=== PATIENT | female | born 1965 | race Caucasian/White ===

== ENCOUNTER 2018-09-10 23:28 | Inpatient (IN) | payer MEDICAID ==
[~2018-09-10] VITALS: Ht 152.4 cm; Wt 63.1 kg
[2018-09-11] MEDS ORDERED: ONDANSETRON 4 MG INJ IV STA (02:41)
[2018-09-11] MEDS ORDERED: morphine 4 MG/ML VIAL IV STA (02:41)
--- NOTE | 2018-09-11 05:29 | ERD ---
ER Documentation Chief Complaint Chief Complaint RUQ ab pain radiating to her flanks today HPI Patient is a 52-year-old female with no medical problems who presents with abdominal pain. The patient has epigastric abdominal pain which radiates to her back. It is constant and sharp in nature. She has had no treatment as of yet. She has no fevers. She has vomiting but no diarrhea. Upon review of old medical records this is the patient's first visit to the emergency department. Her primary doctor is Dr. Warner. ROS All systems reviewed and are negative except as per history of present illness. Allergies Allergies: Coded Allergies: No Known Allergy (Unverified , 09/10/18) PMhx/Soc Medical and Surgical Hx: pt denies Medical Hx History of Surgery: Yes (C-sectionX2) Anesthesia Reaction: No Hx Neurological Disorder: No Hx Respiratory Disorders: No Hx Cardiac Disorders: No Hx Miscellaneous Medical Probl: No Hx Alcohol Use: No Hx Substance Use: No Hx Tobacco Use: No Smoking Status: Never smoker FmHx Family History: diabetes Physical Exam Vitals Vital Signs Date Temp Pulse Resp B/P (MAP) Pulse Ox O2 O2 Flow FiO2 Time Delivery Rate 09/11/18 72 20 110/85 96 Room Air 05:00 (93) 09/11/18 74 22 129/76 99 Room Air 02:35 (93) 09/10/18 97.2 89 18 150/75 100 23:32 (100) Physical Exam Const: Distress secondary to pain Head: Atraumatic Eyes: Normal Conjunctiva ENT: Normal External Ears, Nose and Mouth. Neck: Full range of motion. No meningismus. Resp: Clear to auscultation bilaterally Cardio: Regular rate and rhythm, no murmurs Abd: Soft, right upper quadrant and epigastric tenderness to palpation Skin: No petechiae or rashes Back: No midline or flank tenderness Ext: No cyanosis, or edema Neur: Awake and alert Psych: Normal Mood and Affect Result Diagram: 09/11/18 0250 09/11/18 0250 Results 24 hrs Laboratory Tests Test 09/11/18 02:45 09/11/18 02:50 Urine Color YELLOW Urine Clarity CLEAR Urine pH 6.0 Urine Specific [place] 1.018 Urine Ketones NEGATIVE mg/dL Urine Nitrite NEGATIVE mg/dL Urine Bilirubin NEGATIVE mg/dL Urine Urobilinogen 1+ mg/dL Urine Leukocyte Esterase NEGATIVE Hilda/ul Urine Microscopic RBC 7 /HPF Urine Microscopic WBC 0 /HPF Urine Hemoglobin 1+ mg/dL Urine Glucose NEGATIVE mg/dL Urine Total Protein NEGATIVE mg/dl White Blood Count 6.3 10^3/ul Red Blood Count 4.14 10^6/ul Hemoglobin 13.0 g/dl Hematocrit 40.2 % Mean Corpuscular Volume 97.1 fl Mean Corpuscular Hemoglobin 31.4 pg Mean Corpuscular Hemoglobin Concent 32.3 g/dl Red Cell Distribution Width 13.2 % Platelet Count 380 10^3/UL Mean Platelet Volume 8.9 fl Immature Granulocytes % 0.200 % Neutrophils % 65.2 % Lymphocytes % 26.9 % Monocytes % 6.5 % Eosinophils % 0.9 % Basophils % 0.3 % Nucleated Red Blood Cells % 0.0 /100WBC Immature Granulocytes # 0.010 10^3/ul Neutrophils # 4.1 10^3/ul Lymphocytes # 1.7 10^3/ul Monocytes # 0.4 10^3/ul Eosinophils # 0.1 10^3/ul Basophils # 0.0 10^3/ul Nucleated Red Blood Cells # 0.0 10^3/ul Sodium Level 144 mmol/L Potassium Level 3.7 mmol/L Chloride Level 104 mmol/L Carbon Dioxide Level 29 mmol/L Anion Gap 11 Blood Urea Nitrogen 16 mg/dl Creatinine 0.50 mg/dl Est Glomerular Filtrat Rate mL/min > 60 mL/min Glucose Level 112 mg/dl Calcium Level 9.8 mg/dl Total Bilirubin 1.5 mg/dl Direct Bilirubin 0.20 mg/dl Indirect Bilirubin 1.3 mg/dl Aspartate Amino Transf (AST/SGOT) 858 IU/L Alanine Aminotransferase (ALT/SGPT) 865 IU/L Alkaline Phosphatase 228 IU/L Total Protein 9.0 g/dl Albumin 4.7 g/dl Globulin 4.30 g/dl Albumin/Globulin Ratio 1.09 Lipase 181 U/L Current Medications Medications Dose Sig/Hiral Start Time Status Last (Trade) Ordered Route PRN Stop Time Admin Dose Reason Admin Morphine 4 mg ONCE STAT 09/11/18 DC 09/11/18 Sulfate IV 02:41 09/11/18 03:17 (morphine) 02:42 Ondansetron 4 mg ONCE STAT 09/11/18 DC 09/11/18 HCl (Zofran IV 02:41 09/11/18 03:17 Inj) 02:42 Piperacillin 100 ml @ ONCE ONCE 09/11/18 UNV Sod/ 200 mls/hr IVPB 05:30 09/11/18 Tazobactam 05:59 Sod Ondansetron 4 mg BRIDGE ORDER 09/11/18 HCl (Zofran PRN IV 05:30 09/12/18 Inj) NAUSEA AND/OR 05:29 VOMITING 650 mg ER BRIDGE 09/11/18 Acetaminophen PRN PO MILD 05:30 09/12/18 (Tylenol PAIN(1-3)OR 05:29 Tab) ELEVATED TEMP Procedures/MDM Ultrasound of the gallbladder read by radiology. Patient is a 52-year-old female who presents with abdominal pain. She was found to have elevated AST and ALT and I am concerned about choledocholithiasis given her ultrasound findings as well. She was given Zosyn. I doubt sepsis at this time. The patient will be admitted to the care of Dr. Vidal from the panel team to a medical surgical bed. She will likely need GI consultation for possible ERCP. Departure Diagnosis: Primary Impression: Abdominal pain Abdominal location: epigastric Qualified Codes: R10.13 - Epigastric pain Additional Impression: Choledocholithiasis Condition: ANDREW Carey MD Sep 11, 2018 05:29
[2018-09-11] MEDS ORDERED: ONDANSETRON 4 MG INJ IV PRN ×2 (05:30→07:30)
[2018-09-11] MEDS ORDERED: ACETAMINOPHEN 325 MG TAB PO PRN (05:30)
[2018-09-11] MEDS ORDERED: PIPER-TAZO 3.375 GM IV (PMX) 100 ML IVPB ONE (05:30)
[2018-09-11] MEDS ORDERED: NACL 0.9% 3 ML SYG IV SCH (07:30)
[2018-09-11] MEDS ORDERED: morphine 2 MG INJ IV PRN (07:30)
[2018-09-11] MEDS: DEXTROSE 5%-0.45% NACL 1,000 ML IV SCH ×2 (07:37→23:18)
--- NOTE | 2018-09-11 08:41 | HP ---
Date/Time of Note Date/Time of Note DATE: 09/11/18 TIME: 08:39 Assessment/Plan VTE Prophylaxis Pharmacological prophylaxis: heparin Lines/Catheters IV Catheter Type (from Nrs): Saline Lock Assessment/Plan Assessment/Plan 52-year-old female with abdominal pain, likely secondary to choledocholithiasis PLAN Keep n.p.o. with IV fluid MRCP HIDA scan GI and surgical consult Hep panel Result Diagram: 09/11/18 0250 09/11/18 0250 Results 24hrs Laboratory Tests Test 09/11/18 02:45 09/11/18 02:50 Urine Color YELLOW Urine Clarity CLEAR Urine pH 6.0 Urine Specific [place] 1.018 Urine Ketones NEGATIVE Urine Nitrite NEGATIVE Urine Bilirubin NEGATIVE Urine Urobilinogen 1+ H Urine Leukocyte Esterase NEGATIVE Urine Microscopic RBC 7 H Urine Microscopic WBC 0 Urine Hemoglobin 1+ H Urine Glucose NEGATIVE Urine Total Protein NEGATIVE White Blood Count 6.3 Red Blood Count 4.14 L Hemoglobin 13.0 Hematocrit 40.2 Mean Corpuscular Volume 97.1 Mean Corpuscular Hemoglobin 31.4 Mean Corpuscular Hemoglobin Concent 32.3 Red Cell Distribution Width 13.2 Platelet Count 380 Mean Platelet Volume 8.9 Immature Granulocytes % 0.200 Neutrophils % 65.2 Lymphocytes % 26.9 Monocytes % 6.5 Eosinophils % 0.9 Basophils % 0.3 Nucleated Red Blood Cells % 0.0 Immature Granulocytes # 0.010 Neutrophils # 4.1 Lymphocytes # 1.7 Monocytes # 0.4 Eosinophils # 0.1 Basophils # 0.0 Nucleated Red Blood Cells # 0.0 Sodium Level 144 Potassium Level 3.7 Chloride Level 104 Carbon Dioxide Level 29 Anion Gap 11 Blood Urea Nitrogen 16 Creatinine 0.50 Est Glomerular Filtrat Rate mL/min > 60 Glucose Level 112 Calcium Level 9.8 Total Bilirubin 1.5 H Direct Bilirubin 0.20 Indirect Bilirubin 1.3 H Aspartate Amino Transf (AST/SGOT) 858 H Alanine Aminotransferase (ALT/SGPT) 865 H Alkaline Phosphatase 228 H Total Protein 9.0 H Albumin 4.7 Globulin 4.30 H Albumin/Globulin Ratio 1.09 Lipase 181 HPI/ROS Admit Date/Time Admit Date/Time Hx of Present Illness This is a 52-year-old female with no significant past medical history presented to ER complaining of abdominal pain and vomiting X 1 day. Pain is mainly localized in the right upper quadrant area. Emesis described as nonbloody nonbilious. No chest pain, shortness of breath, fever/chills. When presented to ER, she is found to have severely elevated transaminases in the 800s range. CT abdomen pelvis shows the followin. Gallstones are present with presumed tumefactive sludge although Doppler imaging was not utilized on this material. Correlation with prior imaging is suggested if available. Follow-up gallbladder ultrasound with Doppler imaging may be helpful for confirmation to exclude solid tissue/mass. 2. Positive sonographic Dillon's sign but no wall thickening or pericholecystic fluid. Acute cholecystitis may be considered. 3. Nuclear medicine HIDA scan may be helpful for further evaluation if warranted. PMH/Family/Social Past Medical History PMH/Family/Social Past Medical History Medical History: other (see hpi) Coded Allergies: No Known Drug Allergy (Verified Allergy, Unknown, 04/23/16) Past Surgical History Past Surgical Hx: other (see hpi) Family History Significant Family History: no pertinent family hx Social History Alcohol Use: other Smoking Status: Unknown if ever smoked Drug Use: other Medications Current Medications Ondansetron HCl (Zofran Inj) 4 mg BRIDGE ORDER PRN IV NAUSEA AND/OR VOMITING; Start 09/11/18 at 05:30; Stop 09/12/18 at 05:29 Acetaminophen (Tylenol Tab) 650 mg ER BRIDGE PRN PO MILD PAIN(1-3)OR ELEVATED TEMP; Start 09/11/18 at 05:30; Stop 09/12/18 at 05:29 Dextrose/Sodium Chloride 1,000 ml @ 100 mls/hr Q10H IV Last administered on 09/11/18at 07:37; Admin Dose 100 MLS/HR; Start 09/11/18 at 07:12 IV Flush (NS 3 ml) 3 ml PER PROTOCOL IV ; Start 09/11/18 at 07:30 Ondansetron HCl (Zofran Inj) 4 mg Q6H PRN IV NAUSEA AND/OR VOMITING; Start 09/11/18 at 07:30 Morphine Sulfate (morphine) 2 mg Q4H PRN IV SEVERE PAIN LEVEL 7-10; Start 09/11/18 at 07:30 Famotidine (Pepcid Iv) 20 mg Q12 IV ; Start 09/11/18 at 09:00 Coded Allergies: No Known Allergy (Unverified , 09/10/18) Social History Smoking Status: Never smoker Exam/Review of Systems Vital Signs Vitals Vital Signs Date Temp Pulse Resp B/P (MAP) Pulse Ox O2 O2 Flow FiO2 Time Delivery Rate 09/11/18 98.4 77 16 104/69 98 Room Air 06:35 (81) Exam Constitutional: other (No acute distress) Head: normocephalic, atraumatic Eyes: EOMI, PERRL Respiratory: clear to auscultation, normal air movement Cardiovascular: regular rate and rhythm, nl pulses Gastrointestinal: soft, tender Extremities: normal pulses JOHNY BARTH MD Sep 11, 2018 08:41
[2018-09-11] MEDS: FAMOTIDINE 20 MG INJ IV SCH ×2 (09:26→23:16)
[2018-09-11 10:18] VITALS: BP 112/63; PULSE 86; RESP 18
[2018-09-11 10:43] VITALS: Ht 152.4 cm; Wt 63.1 kg
--- NOTE | 2018-09-11 13:00 | CONS ---
Date/Time of Note Date/Time of Note DATE: 09/11/18 TIME: 12:48 Assessment/Plan Assessment/Plan Assessment/Plan 1. Cholelithiasis with concern for choledocholithiasis: -MRCP pending -GI consult 2. Abdominal pain: ? 2/2 symptomatic cholelithiasis versus cholelithiasis versus other -As above -Pain management 3. Hyperbilirubinemia: Concern for choledocholithiasis -As above 4. Transaminitis: Likely 2/2 #1; hep panel negative -As above 5. Overweight BMI: 27 -diet and exercise optimization -encourage weight loss Thank you. Patient seen and examined in collaboration with Dr. Fernando Bustamante. Result Diagram: 09/11/18 0250 09/11/18 0250 Results 24hrs Laboratory Tests Test 09/11/18 02:45 09/11/18 02:50 09/11/18 07:29 Urine Color YELLOW Urine Clarity CLEAR Urine pH 6.0 Urine Specific [place] 1.018 Urine Ketones NEGATIVE Urine Nitrite NEGATIVE Urine Bilirubin NEGATIVE Urine Urobilinogen 1+ H Urine Leukocyte Esterase NEGATIVE Urine Microscopic RBC 7 H Urine Microscopic WBC 0 Urine Hemoglobin 1+ H Urine Glucose NEGATIVE Urine Total Protein NEGATIVE White Blood Count 6.3 Red Blood Count 4.14 L Hemoglobin 13.0 Hematocrit 40.2 Mean Corpuscular Volume 97.1 Mean Corpuscular Hemoglobin 31.4 Mean Corpuscular Hemoglobin Concent 32.3 Red Cell Distribution Width 13.2 Platelet Count 380 Mean Platelet Volume 8.9 Immature Granulocytes % 0.200 Neutrophils % 65.2 Lymphocytes % 26.9 Monocytes % 6.5 Eosinophils % 0.9 Basophils % 0.3 Nucleated Red Blood Cells % 0.0 Immature Granulocytes # 0.010 Neutrophils # 4.1 Lymphocytes # 1.7 Monocytes # 0.4 Eosinophils # 0.1 Basophils # 0.0 Nucleated Red Blood Cells # 0.0 Sodium Level 144 Potassium Level 3.7 Chloride Level 104 Carbon Dioxide Level 29 Anion Gap 11 Blood Urea Nitrogen 16 Creatinine 0.50 Est Glomerular Filtrat Rate mL/min > 60 Glucose Level 112 Calcium Level 9.8 Total Bilirubin 1.5 H Direct Bilirubin 0.20 Indirect Bilirubin 1.3 H Aspartate Amino Transf (AST/SGOT) 858 H Alanine Aminotransferase (ALT/SGPT) 865 H Alkaline Phosphatase 228 H Total Protein 9.0 H Albumin 4.7 Globulin 4.30 H Albumin/Globulin Ratio 1.09 Lipase 181 Hepatitis B Surface Antigen NEGATIVE Hepatitis B Surface Antibody NEGATIVE Hepatitis C Antibody NEGATIVE Consultation Date/Type/Reason Admit Date/Time Date of Consultation: Sep 11, 2018 Type of Consult surgical Reason for Consultation Abdominal pain, cholelithiasis, concern for choledocholithiasis Requesting Provider: JOHNY BARTH MD Hx of Present Illness Yarely Sandoval is a 52-year-old woman without significant past medical history, who presents to the ER with complaints of abdominal pain times 3 days. Abdominal pain is mid epigastric and in the right upper quadrant area with radiation to the back. Pain is described as strong and stabbing. Associated symptoms include one-time vomiting, nonbloody emesis. She denies changes in pain characteristic with food, fevers, chills, congested cough, chest pain, palpitations, dysuria, diarrhea, change in bowel or bladder habits, seizures, rash, skin or scleral changes.Ultrasound of the gallbladder shows gallstones with presumed tumefactive sludge and a positive sonographic Dillon's sign without wall thickening or pericholecystic fluid. Laboratory findings significant for elevated bilirubin and transaminitis. General surgery was asked to evaluate. 12 point review of systems was performed and is negative except for as stated in HPI Past Medical History Overweight: BMI 27 Medications Current Medications Ondansetron HCl (Zofran Inj) 4 mg BRIDGE ORDER PRN IV NAUSEA AND/OR VOMITING; Start 09/11/18 at 05:30; Stop 09/12/18 at 05:29 Acetaminophen (Tylenol Tab) 650 mg ER BRIDGE PRN PO MILD PAIN(1-3)OR ELEVATED TEMP; Start 09/11/18 at 05:30; Stop 09/12/18 at 05:29 Dextrose/Sodium Chloride 1,000 ml @ 100 mls/hr Q10H IV Last administered on 09/11/18at 07:37; Admin Dose 100 MLS/HR; Start 09/11/18 at 07:12 IV Flush (NS 3 ml) 3 ml PER PROTOCOL IV ; Start 09/11/18 at 07:30 Ondansetron HCl (Zofran Inj) 4 mg Q6H PRN IV NAUSEA AND/OR VOMITING; Start 09/11/18 at 07:30 Morphine Sulfate (morphine) 2 mg Q4H PRN IV SEVERE PAIN LEVEL 7-10; Start 09/11/18 at 07:30 Famotidine (Pepcid Iv) 20 mg Q12 IV Last administered on 09/11/18at 09:26; Admin Dose 20 MG; Start 09/11/18 at 09:00 Allergies: Coded Allergies: No Known Allergy (Unverified , 09/10/18) Past Surgical History Family History Significant Family History: no pertinent family hx Social History Alcohol Use: none Smoking Status: Never smoker Drug Use: none Exam/Review of Systems Vital Signs Vitals Vital Signs Date Temp Pulse Resp B/P (MAP) Pulse Ox O2 O2 Flow FiO2 Time Delivery Rate 09/11/18 98.1 86 18 112/63 97 10:18 (79) 09/11/18 Room Air 06:35 Exam Constitutional: alert, oriented, well developed Psych: nl mood/affect; No anxiety Head: normocephalic, atraumatic Eyes: nl conjunctiva, EOMI, nl lids ENMT: nl external ears & nose, nl lips & teeth, nl nasal mucosa & septum, mucosa pink and moist Neck: supple, non-tender; No jvd, No nuchal rigidity Respiratory: normal air movement; No congested cough, No labored breathing Cardiovascular: regular rate and rhythm, nl pulses; No edema Gastrointestinal: soft, distended (Minimal), surgical scars, tender (Minimal right upper quadrant; Dillon's negative by palpation) Genitourinary - Female: nl external genitalia Musculoskeletal: nl extremities to inspection, nl gait and stance Extremities: normal pulses Neurological: nl mental status, nl speech, nl strength Skin: No rash or lesions Medications Medications Current Medications Ondansetron HCl (Zofran Inj) 4 mg BRIDGE ORDER PRN IV NAUSEA AND/OR VOMITING; Start 09/11/18 at 05:30; Stop 09/12/18 at 05:29 Acetaminophen (Tylenol Tab) 650 mg ER BRIDGE PRN PO MILD PAIN(1-3)OR ELEVATED TEMP; Start 09/11/18 at 05:30; Stop 09/12/18 at 05:29 Dextrose/Sodium Chloride 1,000 ml @ 100 mls/hr Q10H IV Last administered on 09/11/18at 07:37; Admin Dose 100 MLS/HR; Start 09/11/18 at 07:12 IV Flush (NS 3 ml) 3 ml PER PROTOCOL IV ; Start 09/11/18 at 07:30 Ondansetron HCl (Zofran Inj) 4 mg Q6H PRN IV NAUSEA AND/OR VOMITING; Start 09/11/18 at 07:30 Morphine Sulfate (morphine) 2 mg Q4H PRN IV SEVERE PAIN LEVEL 7-10; Start 09/11/18 at 07:30 Famotidine (Pepcid Iv) 20 mg Q12 IV Last administered on 09/11/18at 09:26; Admin Dose 20 MG; Start 09/11/18 at 09:00 YARELY SINGLETON NP Sep 11, 2018 12:59
--- NOTE | 2018-09-11 13:59 | CONS ---
Date/Time of Note Date/Time of Note DATE: 09/11/18 TIME: 13:52 Assessment/Plan Assessment/Plan Hospital Course Summary Assessment and Plan: Assessment: Symptomatic cholelithiasis vs other -with presumed tumefactive sludge on imaging Rule out choledocholithiasis Elevated LFTs with indirect hyperbilirubinemia -Hepatitis panel negative for hepatitis B/C Plan: MRCP- pending-if positive will proceed with ERCP HIDA scan- pending Monitor labs Given elevation of LFTs we will additionally check APRIL, ASMA, AMA Patient seen in collaboration with Dr. Knight Result Diagram: 09/11/18 0250 09/11/18 0250 Results 24hrs Laboratory Tests Test 09/11/18 02:45 09/11/18 02:50 09/11/18 07:29 Urine Color YELLOW Urine Clarity CLEAR Urine pH 6.0 Urine Specific [place] 1.018 Urine Ketones NEGATIVE Urine Nitrite NEGATIVE Urine Bilirubin NEGATIVE Urine Urobilinogen 1+ H Urine Leukocyte Esterase NEGATIVE Urine Microscopic RBC 7 H Urine Microscopic WBC 0 Urine Hemoglobin 1+ H Urine Glucose NEGATIVE Urine Total Protein NEGATIVE White Blood Count 6.3 Red Blood Count 4.14 L Hemoglobin 13.0 Hematocrit 40.2 Mean Corpuscular Volume 97.1 Mean Corpuscular Hemoglobin 31.4 Mean Corpuscular Hemoglobin Concent 32.3 Red Cell Distribution Width 13.2 Platelet Count 380 Mean Platelet Volume 8.9 Immature Granulocytes % 0.200 Neutrophils % 65.2 Lymphocytes % 26.9 Monocytes % 6.5 Eosinophils % 0.9 Basophils % 0.3 Nucleated Red Blood Cells % 0.0 Immature Granulocytes # 0.010 Neutrophils # 4.1 Lymphocytes # 1.7 Monocytes # 0.4 Eosinophils # 0.1 Basophils # 0.0 Nucleated Red Blood Cells # 0.0 Sodium Level 144 Potassium Level 3.7 Chloride Level 104 Carbon Dioxide Level 29 Anion Gap 11 Blood Urea Nitrogen 16 Creatinine 0.50 Est Glomerular Filtrat Rate mL/min > 60 Glucose Level 112 Calcium Level 9.8 Total Bilirubin 1.5 H Direct Bilirubin 0.20 Indirect Bilirubin 1.3 H Aspartate Amino Transf (AST/SGOT) 858 H Alanine Aminotransferase (ALT/SGPT) 865 H Alkaline Phosphatase 228 H Total Protein 9.0 H Albumin 4.7 Globulin 4.30 H Albumin/Globulin Ratio 1.09 Lipase 181 Hepatitis B Surface Antigen NEGATIVE Hepatitis B Surface Antibody NEGATIVE Hepatitis C Antibody NEGATIVE CC: ENID KNIGHT ; Consultation Date/Type/Reason Admit Date/Time Date of Consultation: Sep 11, 2018 Type of Consult GI Reason for Consultation Rule out choledocholithiasis Elevated LFTs Hx of Present Illness This is a 52 year old female no significant past medical history who presented to the ER with complaints of epigastric pain. Patient states pain initially started on Wednesday described as intermittent however the following day pain was described as consistent associated with nausea nonbloody vomiting, she also note d with palpation pain radiates to her back.. Patient came to the ED for further evaluation. Upon workup patient noted to have very elevated LFTs as well as direct hyperbilirubinemia. A gallbladder ultrasound was obtained and patient states gallstones are present with presumed tumefactive sludge, although Doppler imaging was not utilized. Positive sonographic Dillon's sign but no wall thickening or pericholecystic fluid. Acute cholecystitis may be considered. Additionally hepatitis B surface antigen is negative, hepatitis B surface antibody is negative, hepatitis C antibody is also negative at time evaluation patient denies further episodes of nausea/vomiting, epigastric pain has improved and almost completely resolved. She denies melena, hematochezia, constipation, diarrhea. She denies chronic NSAID use. Discussed plan for further imaging and monitoring blood values. Patient verbalized understanding. Review of Systems: A 12 system, review was conducted and is negative except as noted in the HPI or here. Past Medical History Medications Current Medications Ondansetron HCl (Zofran Inj) 4 mg BRIDGE ORDER PRN IV NAUSEA AND/OR VOMITING; Start 09/11/18 at 05:30; Stop 09/12/18 at 05:29 Acetaminophen (Tylenol Tab) 650 mg ER BRIDGE PRN PO MILD PAIN(1-3)OR ELEVATED TEMP; Start 09/11/18 at 05:30; Stop 09/12/18 at 05:29 Dextrose/Sodium Chloride 1,000 ml @ 100 mls/hr Q10H IV Last administered on 09/11/18at 07:37; Admin Dose 100 MLS/HR; Start 09/11/18 at 07:12 IV Flush (NS 3 ml) 3 ml PER PROTOCOL IV ; Start 09/11/18 at 07:30 Ondansetron HCl (Zofran Inj) 4 mg Q6H PRN IV NAUSEA AND/OR VOMITING; Start 09/11/18 at 07:30 Morphine Sulfate (morphine) 2 mg Q4H PRN IV SEVERE PAIN LEVEL 7-10; Start 09/11/18 at 07:30 Famotidine (Pepcid Iv) 20 mg Q12 IV Last administered on 09/11/18at 09:26; Admin Dose 20 MG; Start 09/11/18 at 09:00 Allergies: Coded Allergies: No Known Allergy (Unverified , 09/10/18) Social History Alcohol Use: none Smoking Status: Never smoker Drug Use: none Exam/Review of Systems Vital Signs Vitals Vital Signs Date Temp Pulse Resp B/P (MAP) Pulse Ox O2 O2 Flow FiO2 Time Delivery Rate 09/11/18 98.1 86 18 112/63 97 10:18 (79) 09/11/18 Room Air 06:35 Exam PHYSICAL EXAMINATION: GENERAL: Well developed, well nourished, alert & oriented x 3, in no acute distress SKIN: No lesions EYES: Pupils equal reactive to light, no discharge. EARS/NOSE AND THROAT: Ears normal, nose normal, oropharynx normal. NECK: Supple, no masses. CHEST: Inspection within normal limits. CARDIOVASCULAR: Heart: Regular rate and rhythm RESPIRATORY: Lungs clear to auscultation GASTROINTESTINAL AND LIVER: Abdomen: Soft, non tenderness, non-distended, no hernias, no masses, no organomegaly, no ascites, no guarding, no rebound te nderness, normoactive bowel sounds. Rectal: Deferred. GENITOURINARY: Female genitalia within normal limits. EXTREMITIES: No cyanosis, clubbing or edema. Medications Medications Current Medications Ondansetron HCl (Zofran Inj) 4 mg BRIDGE ORDER PRN IV NAUSEA AND/OR VOMITING; Start 09/11/18 at 05:30; Stop 09/12/18 at 05:29 Acetaminophen (Tylenol Tab) 650 mg ER BRIDGE PRN PO MILD PAIN(1-3)OR ELEVATED TEMP; Start 09/11/18 at 05:30; Stop 09/12/18 at 05:29 Dextrose/Sodium Chloride 1,000 ml @ 100 mls/hr Q10H IV Last administered on 09/11/18at 07:37; Admin Dose 100 MLS/HR; Start 09/11/18 at 07:12 IV Flush (NS 3 ml) 3 ml PER PROTOCOL IV ; Start 09/11/18 at 07:30 Ondansetron HCl (Zofran Inj) 4 mg Q6H PRN IV NAUSEA AND/OR VOMITING; Start 09/11/18 at 07:30 Morphine Sulfate (morphine) 2 mg Q4H PRN IV SEVERE PAIN LEVEL 7-10; Start 09/11/18 at 07:30 Famotidine (Pepcid Iv) 20 mg Q12 IV Last administered on 09/11/18at 09:26; Admin Dose 20 MG; Start 09/11/18 at 09:00 DAREN GAN Sep 11, 2018 13:59
[2018-09-11 14:27] VITALS: BP 115/74; PULSE 78
--- NOTE | 2018-09-11 17:49 | PN ---
Date/Time of Note Date/Time of Note DATE: 09/11/18 TIME: 17:46 Assessment/Plan VTE Prophylaxis SCD applied (from Nsg): Yes Pharmacological prophylaxis: NA/contraindicated Pharm contraindication: low risk/ambulating Lines/Catheters IV Catheter Type (from Nrsg): Peripheral IV Assessment/Plan Hospital Course 1. Cholelithiasis with possible choledocholithiasis: Follow-up on MRCP and HIDA GI and surgery consultations appreciated 2. Transaminitis secondary to above Hepatitis panel is negative Follow-up on diagnostics Monitor 3. Obesity Lifestyle changes Prophylaxis: SCDs Result Diagram: 09/11/1824909/11/18249 Results 24hrs Laboratory Tests Test 09/11/18 02:45 09/11/18 02:50 09/11/18 07:29 Urine Color YELLOW Urine Clarity CLEAR Urine pH 6.0 Urine Specific [place] 1.018 Urine Ketones NEGATIVE Urine Nitrite NEGATIVE Urine Bilirubin NEGATIVE Urine Urobilinogen 1+ H Urine Leukocyte Esterase NEGATIVE Urine Microscopic RBC 7 H Urine Microscopic WBC 0 Urine Hemoglobin 1+ H Urine Glucose NEGATIVE Urine Total Protein NEGATIVE White Blood Count 6.3 Red Blood Count 4.14 L Hemoglobin 13.0 Hematocrit 40.2 Mean Corpuscular Volume 97.1 Mean Corpuscular Hemoglobin 31.4 Mean Corpuscular Hemoglobin Concent 32.3 Red Cell Distribution Width 13.2 Platelet Count 380 Mean Platelet Volume 8.9 Immature Granulocytes % 0.200 Neutrophils % 65.2 Lymphocytes % 26.9 Monocytes % 6.5 Eosinophils % 0.9 Basophils % 0.3 Nucleated Red Blood Cells % 0.0 Immature Granulocytes # 0.010 Neutrophils # 4.1 Lymphocytes # 1.7 Monocytes # 0.4 Eosinophils # 0.1 Basophils # 0.0 Nucleated Red Blood Cells # 0.0 Sodium Level 144 Potassium Level 3.7 Chloride Level 104 Carbon Dioxide Level 29 Anion Gap 11 Blood Urea Nitrogen 16 Creatinine 0.50 Est Glomerular Filtrat Rate mL/min > 60 Glucose Level 112 Calcium Level 9.8 Total Bilirubin 1.5 H Direct Bilirubin 0.20 Indirect Bilirubin 1.3 H Aspartate Amino Transf (AST/SGOT) 858 H Alanine Aminotransferase (ALT/SGPT) 865 H Alkaline Phosphatase 228 H Total Protein 9.0 H Albumin 4.7 Globulin 4.30 H Albumin/Globulin Ratio 1.09 Lipase 181 Hepatitis B Surface Antigen NEGATIVE Hepatitis B Surface Antibody NEGATIVE Hepatitis C Antibody NEGATIVE Subjective 24 Hr Interval Summary Constitutional: no complaints Exam/Review of Systems Vital Signs Vitals Vital Signs Date Temp Pulse Resp B/P (MAP) Pulse Ox O2 O2 Flow FiO2 Time Delivery Rate 09/11/18 98.8 78 115/74 96 14:27 (88) 09/11/18 18 10:18 09/11/18 Room Air 06:35 Exam Constitutional: alert Respiratory: clear to auscultation Cardiovascular: regular rate and rhythm Gastrointestinal: soft; No distended Musculoskeletal: nl extremities to inspection Medications Medications Current Medications Acetaminophen (Tylenol Tab) 650 mg ER BRIDGE PRN PO MILD PAIN(1-3)OR ELEVATED TEMP; Start 09/11/18 at 05:30; Stop 09/12/18 at 05:29 Dextrose/Sodium Chloride 1,000 ml @ 100 mls/hr Q10H IV Last administered on 09/11/18at 07:37; Admin Dose 100 MLS/HR; Start 09/11/18 at 07:12 IV Flush (NS 3 ml) 3 ml PER PROTOCOL IV ; Start 09/11/18 at 07:30 Ondansetron HCl (Zofran Inj) 4 mg Q6H PRN IV NAUSEA AND/OR VOMITING; Start 09/11/18 at 07:30 Morphine Sulfate (morphine) 2 mg Q4H PRN IV SEVERE PAIN LEVEL 7-10; Start 09/11/18 at 07:30 Famotidine (Pepcid Iv) 20 mg Q12 IV Last administered on 09/11/18at 09:26; Admin Dose 20 MG; Start 09/11/18 at 09:00 DOMINIQUE SHERWOOD Sep 11, 2018 17:49
[2018-09-11 20:31] VITALS: BP 103/66; PULSE 77
[2018-09-12 02:30] VITALS: BP 98/54; PULSE 63; RESP 18
[2018-09-12] MEDS: DEXTROSE 5%-0.45% NACL 1,000 ML IV SCH ×2 (03:12→09:13)
[2018-09-12 08:10] VITALS: BP 97/52; PULSE 68; RESP 18
[2018-09-12] MEDS: FAMOTIDINE 20 MG INJ IV SCH ×2 (09:13→22:19)
--- NOTE | 2018-09-12 12:04 | PN ---
Date/Time of Note Date/Time of Note DATE: 09/12/18 TIME: 12:00 Assessment/Plan Lines/Catheters IV Catheter Type (from Nrs): Peripheral IV Assessment/Plan Assessment/Plan 1. Cholelithiasis with concern for choledocholithiasis: -MRCP noted -OR tomorrow -N.p.o. after midnight 2. Abdominal pain: ? 2/2 symptomatic cholelithiasis versus cholelithiasis versus other: Improved -As above -Pain management 3. Hyperbilirubinemia: Concern for choledocholithiasis: Improved -As above 4. Transaminitis: Likely 2/2 #1; hep panel negative -As above 5. Overweight BMI: 27 -diet and exercise optimization -encourage weight loss Thank you. Patient seen and examined in collaboration with Dr. Fernando Bustamante. Subjective 24 Hr Interval Summary Feels well. No acute abdominal pain. MRCP noted. HIDA scan noted. No fevers, chills, sob, congested cough, cp, palpitations, lopez, dizziness, nausea, vomiting, diarrhea, dysuria. Exam/Review of Systems Vital Signs Vitals Vital Signs Date Temp Pulse Resp B/P (MAP) Pulse Ox O2 O2 Flow FiO2 Time Delivery Rate 09/12/18 98.4 68 18 97/52 (67) 97 08:10 09/11/18 Room Air 06:35 Intake and Output 09/11/18 09/11/18 09/12/18 1515:00 23:00 07:00 IntakeIntake Total 240 ml 1600 ml BalanceBalance 240 ml 1600 ml Exam Free Text/Dictation Constitutional: alert, oriented, well developed Psych: nl mood/affect; No anxiety Head: normocephalic, atraumatic Eyes: nl conjunctiva, EOMI, nl lids ENMT: nl external ears & nose, nl lips & teeth, nl nasal mucosa & septum, mucosa pink and moist Neck: supple, non-tender; No jvd, No nuchal rigidity Respiratory: normal air movement; No congested cough, No labored breathing Cardiovascular: regular rate and rhythm, nl pulses; No edema Gastrointestinal: soft, distended (Minimal), surgical scars, tender (Minimal right upper quadrant) Genitourinary - Female: nl external genitalia Musculoskeletal: nl extremities to inspection, nl gait and stance Extremities: normal pulses Neurological: nl mental status, nl speech, nl strength Skin: No rash or lesions Results Result Diagram: 09/12/18 0429 09/12/18 0429 CHASE SINGLETON NP Sep 12, 2018 12:04
--- NOTE | 2018-09-12 12:30 | PN ---
Date/Time of Note Date/Time of Note DATE: 09/12/18 TIME: 12:14 Assessment/Plan VTE Prophylaxis Risk score (from Ns)>0 risk: 0 [place] [facility] [place] SCD contraindicated: low risk/ambulating, other Pharmacological prophylaxis: NA/contraindicated Pharm contraindication: low risk/ambulating Lines/Catheters IV Catheter Type (from [facility]): Peripheral IV Assessment/Plan Hospital Course Summary Assessment and Plan: Assessment: Symptomatic cholelithiasis vs other -with presumed tumefactive sludge on imaging Rule out choledocholithiasis- MRCP No definite choledocholithiasis visualized- CBD 0.7cm Elevated LFTs with indirect hyperbilirubinemia- improving -Hepatitis panel negative for hepatitis B/C Plan: Cholecystectomy tomorrow APRIL, ASMA, AMA- pending Monitor labs, LFTs improving Patient seen in collaboration with Dr. Bond Subjective: Course reviewed with nursing staff Patient interviewed and examined All labs, imaging and other results reviewed The patient feels well, discussed labs Patient to have surgery tomorrow. Will continue to follow along. PHYSICAL EXAMINATION: GENERAL: Well developed, well nourished, alert & oriented x 3, in no acute distress SKIN: No lesions CARDIOVASCULAR: Heart: Regular rate and rhythm RESPIRATORY: Lungs clear to auscultation GASTROINTESTINAL AND LIVER: Abdomen: Soft, non tenderness, non-distended, no hernias, no masses, no organomegaly, no ascites, no guarding, no rebound tenderness, normoactive bowel sounds. Rectal: Deferred. GENITOURINARY: Female genitalia within normal limits. EXTREMITIES: No cyanosis, clubbing or edema Result Diagram: 09/12/18 0429 09/12/18 0429 Results 24hrs Laboratory Tests Test 09/12/18 04:29 White Blood Count 5.1 Red Blood Count 3.65 L Hemoglobin 11.7 L Hematocrit 35.5 L Mean Corpuscular Volume 97.3 Mean Corpuscular Hemoglobin 32.1 Mean Corpuscular Hemoglobin Concent 33.0 Red Cell Distribution Width 13.4 Platelet Count 332 Mean Platelet Volume 9.2 Immature Granulocytes % 0.200 Neutrophils % 45.3 Lymphocytes % 40.5 Monocytes % 9.9 Eosinophils % 3.5 Basophils % 0.6 Nucleated Red Blood Cells % 0.0 Immature Granulocytes # 0.010 Neutrophils # 2.3 Lymphocytes # 2.1 Monocytes # 0.5 Eosinophils # 0.2 Basophils # 0.0 Nucleated Red Blood Cells # 0.0 Sodium Level 142 Potassium Level 3.4 L Chloride Level 105 Carbon Dioxide Level 28 Anion Gap 9 Blood Urea Nitrogen 14 Creatinine 0.50 Est Glomerular Filtrat Rate mL/min > 60 Glucose Level 109 Calcium Level 9.2 Phosphorus Level 5.0 H Magnesium Level 2.0 Total Bilirubin 1.2 Direct Bilirubin 0.00 # Indirect Bilirubin 1.2 H Aspartate Amino Transf (AST/SGOT) 267 H Alanine Aminotransferase (ALT/SGPT) 529 H Alkaline Phosphatase 176 H Total Protein 7.5 # Albumin 3.8 Globulin 3.70 H Albumin/Globulin Ratio 1.02 Exam/Review of Systems Vital Signs Vitals Vital Signs Date Temp Pulse Resp B/P (MAP) Pulse Ox O2 O2 Flow FiO2 Time Delivery Rate 09/12/18 98.4 68 18 97/52 (67) 97 08:10 09/11/18 Room Air 06:35 Intake and Output 09/11/18 09/11/18 09/12/18 1515:00 23:00 07:00 IntakeIntake Total 240 ml 1600 ml BalanceBalance 240 ml 1600 ml Medications Medications Current Medications Dextrose/Sodium Chloride 1,000 ml @ 100 mls/hr Q10H IV Last administered on 09/12/18at 09:13; Admin Dose 100 MLS/HR; Start 09/11/18 at 07:12 IV Flush (NS 3 ml) 3 ml PER PROTOCOL IV ; Start 09/11/18 at 07:30 Ondansetron HCl (Zofran Inj) 4 mg Q6H PRN IV NAUSEA AND/OR VOMITING; Start 09/11/18 at 07:30 Morphine Sulfate (morphine) 2 mg Q4H PRN IV SEVERE PAIN LEVEL 7-10; Start 09/11/18 at 07:30 Famotidine (Pepcid Iv) 20 mg Q12 IV Last administered on 09/12/18at 09:13; Admin Dose 20 MG; Start 09/11/18 at 09:00 DAREN GAN Sep 12, 2018 12:30
[2018-09-12 14:22] VITALS: BP 104/57; PULSE 71; RESP 18
[2018-09-12] MEDS ORDERED: POTASSIUM CHLORIDE (SR) 20 MEQ TAB PO STA (15:48)
--- NOTE | 2018-09-12 15:51 | PN ---
Date/Time of Note Date/Time of Note DATE: 09/12/18 TIME: 15:38 Assessment/Plan VTE Prophylaxis Risk score (from Ns)>0 risk: 0 SCD applied (from Ns): Yes Pharmacological prophylaxis: NA/contraindicated Pharm contraindication: low risk/ambulating Lines/Catheters IV Catheter Type (from [facility]): Peripheral IV Assessment/Plan Assessment/Plan 1. Cholelithiasis, possible chronic cholecystitis with positive HIDA scan, negative MRCP, zosyn, cholecystectomy tomorrow 2. Transaminitis, negative hep B/C, unclear etiology, ?passed a small stone, follow up with GI Result Diagram: 09/12/1842809/12/189 Results 24hrs Laboratory Tests Test 09/12/18 04:29 White Blood Count 5.1 Red Blood Count 3.65 L Hemoglobin 11.7 L Hematocrit 35.5 L Mean Corpuscular Volume 97.3 Mean Corpuscular Hemoglobin 32.1 Mean Corpuscular Hemoglobin Concent 33.0 Red Cell Distribution Width 13.4 Platelet Count 332 Mean Platelet Volume 9.2 Immature Granulocytes % 0.200 Neutrophils % 45.3 Lymphocytes % 40.5 Monocytes % 9.9 Eosinophils % 3.5 Basophils % 0.6 Nucleated Red Blood Cells % 0.0 Immature Granulocytes # 0.010 Neutrophils # 2.3 Lymphocytes # 2.1 Monocytes # 0.5 Eosinophils # 0.2 Basophils # 0.0 Nucleated Red Blood Cells # 0.0 Sodium Level 142 Potassium Level 3.4 L Chloride Level 105 Carbon Dioxide Level 28 Anion Gap 9 Blood Urea Nitrogen 14 Creatinine 0.50 Est Glomerular Filtrat Rate mL/min > 60 Glucose Level 109 Calcium Level 9.2 Phosphorus Level 5.0 H Magnesium Level 2.0 Total Bilirubin 1.2 Direct Bilirubin 0.00 # Indirect Bilirubin 1.2 H Aspartate Amino Transf (AST/SGOT) 267 H Alanine Aminotransferase (ALT/SGPT) 529 H Alkaline Phosphatase 176 H Total Protein 7.5 # Albumin 3.8 Globulin 3.70 H Albumin/Globulin Ratio 1.02 Subjective 24 Hr Interval Summary Free Text/Dictation no pain. no nausea or vomiting no fever or chills Exam/Review of Systems Vital Signs Vitals Vital Signs Date Temp Pulse Resp B/P (MAP) Pulse Ox O2 O2 Flow FiO2 Time Delivery Rate 09/12/18 98.9 71 18 104/57 99 14:22 (73) 09/11/18 Room Air 06:35 Intake and Output 09/11/18 09/11/18 09/12/18 1515:00 23:00 07:00 IntakeIntake Total 240 ml 1600 ml BalanceBalance 240 ml 1600 ml Exam Constitutional: alert, oriented, well developed Psych: no complaints, nl mood/affect Head: normocephalic, atraumatic Eyes: nl conjunctiva, EOMI, nl lids, nl sclera, PERRL ENMT: nl external ears & nose, nl lips & teeth, nl nasal mucosa & septum Neck: supple, non-tender Respiratory: clear to auscultation, normal air movement; No congested cough, No crackles/rales, No diminished breath sounds, No intercostal retraction, No labored breathing, No respirations, No tactile fremitus, No wheezing, No other Cardiovascular: regular rate and rhythm, nl pulses; No bruits, No diastolic murmur, No edema, No gallop, No irregular rhythm, No jugular venous distention (JVD), No murmurs/extra sounds, No rub, No systolic murmur, No S3, No S4, No other Gastrointestinal: soft, nl liver, spleen, non-tender Musculoskeletal: nl extremities to inspection Extremities: normal pulses; No calf tenderness, No cyanosis, No clubbing, No edema, No pitting pedal edema, No palpable cord, No tenderness, No other Neurological: [employer] II-XII intact, nl mental status, nl speech Skin: nl turgor Medications Medications Current Medications Dextrose/Sodium Chloride 1,000 ml @ 100 mls/hr Q10H IV Last administered on 09/12/18at 09:13; Admin Dose 100 MLS/HR; Start 09/11/18 at 07:12 IV Flush (NS 3 ml) 3 ml PER PROTOCOL IV ; Start 09/11/18 at 07:30 Ondansetron HCl (Zofran Inj) 4 mg Q6H PRN IV NAUSEA AND/OR VOMITING; Start 09/11/18 at 07:30 Morphine Sulfate (morphine) 2 mg Q4H PRN IV SEVERE PAIN LEVEL 7-10; Start 09/11/18 at 07:30 Famotidine (Pepcid Iv) 20 mg Q12 IV Last administered on 09/12/18at 09:13; Admin Dose 20 MG; Start 09/11/18 at 09:00 ZENOBIA ALVAREZ MD Sep 12, 2018 15:48
[2018-09-12] MEDS: PIPER-TAZO 3.375 GM IV (PMX) 100 ML IVPB SCH ×2 (17:25→22:18)
[2018-09-12] MEDS: D5-NS + KCL 20 MEQ 1,000 ML IV SCH (17:26)
[2018-09-12 19:53] VITALS: BP 122/67; PULSE 86; RESP 18
[2018-09-13] VITALS (31 sets, daily range): BP systolic 86–148; BP diastolic 54–74; PULSE 60–92; RESP 15–26
[2018-09-13] MEDS: D5-NS + KCL 20 MEQ 1,000 ML IV SCH ×3 (04:47→20:43)
[2018-09-13] MEDS: PIPER-TAZO 3.375 GM IV (PMX) 100 ML IVPB SCH ×3 (05:32→22:34)
[2018-09-13] MEDS ORDERED: ROCURONIUM 50 MG INJ ONE (07:00)
[2018-09-13] MEDS ORDERED: GLYCOPYRROLATE 0.4 MG INJ ONE (07:00)
[2018-09-13] MEDS ORDERED: NEOSTIGMINE 3 MG/3 ML SYRINGE ONE (07:00)
[2018-09-13] MEDS ORDERED: DESFLURANE 15 MIN ONE (07:00)
[2018-09-13] MEDS: FAMOTIDINE 20 MG INJ IV SCH ×2 (09:33→20:39)
--- NOTE | 2018-09-13 10:46 | PREAC ---
Date/Time of Note Date/Time of Note DATE: 09/13/18 TIME: 10:45 Anesthesia Eval and Record Evaluation Time Pre-Procedure Interview DATE: 09/13/18 TIME: 10:45 Age 52 Sex female NPO: 8 hrs Preoperative diagnosis cholelithiasis Planned procedure lap jacinto Past Medical History Past Medical History: None Surgery & Anesthesia Issues No known issue Meds Anticoagulation: No Beta Chelsey within 24 hr: No Reason Beta Chelsey not given: Pt. not on B-Chelsey Current Medications IV Flush (NS 3 ml) 3 ml PER PROTOCOL IV ; Start 09/11/18 at 07:30 Ondansetron HCl (Zofran Inj) 4 mg Q6H PRN IV NAUSEA AND/OR VOMITING; Start 09/11/18 at 07:30 Morphine Sulfate (morphine) 2 mg Q4H PRN IV SEVERE PAIN LEVEL 7-10; Start 09/11/18 at 07:30 Famotidine (Pepcid Iv) 20 mg Q12 IV Last administered on 09/13/18at 09:33; Admin Dose 20 MG; Start 09/11/18 at 09:00 Potassium Chloride/Dextrose/ Sod Cl 1,000 ml @ 100 mls/hr Q10H IV Last administered on 09/13/18at 04:47; Admin Dose 100 MLS/HR; Start 09/12/18 at 16:00 Piperacillin Sod/ Tazobactam Sod 100 ml @ 200 mls/hr Q8 IVPB Last administered on 09/13/18at 05:32; Admin Dose 200 MLS/HR; Start 09/12/18 at 16:00 Meds reviewed: Yes Allergies Coded Allergies: No Known Allergy (Unverified , 09/10/18) Allergies Reviewed: Yes Labs/Studies Labs Reviewed: Reviewed by anesthesiologist Result Diagram: 09/13/187 09/13/187 Laboratory Tests 09/13/18 04:27 test: N/A Studies: ECG (sr), CXR (n/a) Pre-procedure Exam Last vitals Vital Signs Date Temp Pulse Resp B/P (MAP) Pulse Ox O2 O2 Flow FiO2 Time Delivery Rate 09/13/18 98.2 72 19 97/54 (68) 96 07:26 09/13/18 Room Air 03:57 Airway: Adequate mouth opening Mallampati: Mallampati I Teeth: Normal Lung: Normal Heart: Normal ASA Physical Status ASA physical status: 1 Emergency: None Planned Anesthetic General/MAC: ETT Nerve block: Brachial plexus (bilateral) Planned Pain Management Single shot nerve block Pre-operative Attestations Prior to commencing anesthesia and surgery, the patient was re-evaluated, there was verification of: *The patient's identity *The results of appropriate recent lab work and preoperative vital signs *The above evaluation not changing prior to induction *Anesthetic plan, risk benefits, alternative and complications discussed with patient/family; questions answered; patient/family understands, accepts and wishes to proceed. HUMERA ROSENBAUM MD Sep 13, 2018 10:46
[2018-09-13] MEDS ORDERED: BUPIVACAINE 0.25% (MPF) 30 ML INJ ONE (11:43)
[2018-09-13] MEDS ORDERED: LIDOCAINE 1%/EPI 30 ML INJ ONE (11:43)
[2018-09-13] MEDS ORDERED: MIDAZOLAM 1 MG/ML 2 ML INJ ONE (11:48)
[2018-09-13] MEDS ORDERED: SOD CHLORIDE 0.9% 1,000 ML ONE (11:48)
[2018-09-13] MEDS ORDERED: METOCLOPRAMIDE 10 MG INJ ONE (11:49)
[2018-09-13] MEDS ORDERED: KETOROLAC 30 MG INJ ONE (12:15)
[2018-09-13] MEDS ORDERED: ROPIVACAINE 0.5 % 30 ML VIAL ONE (12:15)
[2018-09-13] MEDS ORDERED: CEFAZOLIN 1 GM INJ ONE (12:15)
--- NOTE | 2018-09-13 12:18 | PN ---
Date/Time of Note Date/Time of Note DATE: 09/13/18 TIME: 12:16 Assessment/Plan Lines/Catheters IV Catheter Type (from [facility]): Peripheral IV Assessment/Plan Chief Complaint/Hosp Course 1. Cholelithiasis with concern for choledocholithiasis: HIDA + -MRCP noted and GI will not perform ERCP -OR today -abx 2. Abdominal pain: ? 2/2 symptomatic cholelithiasis versus cholelithiasis versus other: Improved -As above -Pain management 3. Hyperbilirubinemia: Concern for choledocholithiasis: Improved -As above 4. Transaminitis: Likely 2/2 #1; hep panel negative -As above 5. Overweight BMI: 27 -diet and exercise optimization -encourage weight loss Thank you Subjective 24 Hr Interval Summary Feels well. No acute abdominal pain. MRCP noted. HIDA scan noted (+Delayed). No fevers, chills, sob, congested cough, cp, palpitations, lopez, dizziness, nausea, vomiting, diarrhea, dysuria. Exam/Review of Systems Vital Signs Vitals Vital Signs Date Temp Pulse Resp B/P (MAP) Pulse Ox O2 O2 Flow FiO2 Time Delivery Rate 09/13/18 98.2 72 19 97/54 (68) 96 07:26 09/13/18 Room Air 03:57 Intake and Output 09/12/18 09/12/18 09/13/18 1515:00 23:00 07:00 IntakeIntake Total 1300 ml 1100 ml OutputOutput Total 680 ml BalanceBalance 620 ml 1100 ml Exam Free Text/Dictation Constitutional: alert, oriented, well developed Psych: nl mood/affect; No anxiety Head: normocephalic, atraumatic Eyes: nl conjunctiva, EOMI, nl lids ENMT: nl external ears & nose, nl lips & teeth, nl nasal mucosa & septum, mucosa pink and moist Neck: supple, non-tender; No jvd, No nuchal rigidity Respiratory: normal air movement; No congested cough, No labored breathing Cardiovascular: regular rate and rhythm, nl pulses; No edema Gastrointestinal: soft, distended (Minimal), surgical scars, tender (Minimal right upper quadrant) Genitourinary - Female: nl external genitalia Musculoskeletal: nl extremities to inspection, nl gait and stance Extremities: normal pulses Neurological: nl mental status, nl speech, nl strength Skin: No rash or lesions Results Result Diagram: 09/13/18 0427 09/13/18 0427 ARLEY MARTELL MD Sep 13, 2018 12:18
[2018-09-13] MEDS ORDERED: INDIGOTINDISULFONATE 0.8% 5 ML INJ ONE (12:39)
--- NOTE | 2018-09-13 13:43 | PN ---
Date/Time of Note Date/Time of Note DATE: 09/13/18 TIME: 13:42 Assessment/Plan VTE Prophylaxis Risk score (from Ns)>0 risk: 2 SCD applied (from Ns): Yes Pharmacological prophylaxis: other (scds) Lines/Catheters [facility] (from [facility] Peripheral IV Assessment/Plan Hospital Course Summary Assessment and Plan: Assessment: Symptomatic cholelithiasis vs other -with presumed tumefactive sludge on imaging Rule out choledocholithiasis- MRCP No definite choledocholithiasis visualized- CBD 0.7cm Elevated LFTs with indirect hyperbilirubinemia- improving -Hepatitis panel negative for hepatitis B/C Plan: Currently in OR APRIL, ASMA, AMA- pending Monitor labs, LFTs improving Patient seen in collaboration with Dr. Bond Subjective: Course reviewed with nursing staff Patient interviewed and examined All labs, imaging and other results reviewed Patient off the floor will assess tomorrow PHYSICAL EXAMINATION: Patient off the floor Result Diagram: 09/13/18 0427 09/13/18 0427 Results 24hrs Laboratory Tests Test 09/13/18 04:27 White Blood Count 6.5 # Red Blood Count 3.54 L Hemoglobin 11.3 L Hematocrit 34.8 L Mean Corpuscular Volume 98.3 Mean Corpuscular Hemoglobin 31.9 Mean Corpuscular Hemoglobin Concent 32.5 Red Cell Distribution Width 13.5 Platelet Count 328 Mean Platelet Volume 9.2 Immature Granulocytes % 0.300 Neutrophils % 57.2 Lymphocytes % 32.1 Monocytes % 7.9 Eosinophils % 2.2 Basophils % 0.3 Nucleated Red Blood Cells % 0.0 Immature Granulocytes # 0.020 Neutrophils # 3.7 Lymphocytes # 2.1 Monocytes # 0.5 Eosinophils # 0.1 Basophils # 0.0 Nucleated Red Blood Cells # 0.0 Sodium Level 142 Potassium Level 4.1 Chloride Level 111 H Carbon Dioxide Level 27 Anion Gap 4 L Blood Urea Nitrogen 14 Creatinine 0.57 Est Glomerular Filtrat Rate mL/min > 60 Glucose Level 96 Calcium Level 9.3 Total Bilirubin 0.7 Direct Bilirubin 0.00 Indirect Bilirubin 0.7 Aspartate Amino Transf (AST/SGOT) 136 H Alanine Aminotransferase (ALT/SGPT) 384 H Alkaline Phosphatase 164 H Total Protein 7.1 Albumin 3.7 Globulin 3.40 H Albumin/Globulin Ratio 1.08 Serum HCG, Qualitative NEGATIVE Exam/Review of Systems Vital Signs Vitals Vital Signs Date Temp Pulse Resp B/P (MAP) Pulse Ox O2 O2 Flow FiO2 Time Delivery Rate 09/13/18 98.2 72 19 97/54 (68) 96 07:26 09/13/18 Room Air 03:57 Intake and Output 09/12/18 09/12/18 09/13/18 1515:00 23:00 07:00 IntakeIntake Total 1300 ml 1100 ml OutputOutput Total 680 ml BalanceBalance 620 ml 1100 ml Medications Medications Current Medications IV Flush (NS 3 ml) 3 ml PER PROTOCOL IV ; Start 09/11/18 at 07:30 Ondansetron HCl (Zofran Inj) 4 mg Q6H PRN IV NAUSEA AND/OR VOMITING; Start 09/11/18 at 07:30 Morphine Sulfate (morphine) 2 mg Q4H PRN IV SEVERE PAIN LEVEL 7-10; Start 09/11/18 at 07:30 Famotidine (Pepcid Iv) 20 mg Q12 IV Last administered on 09/13/18at 09:33; Admin Dose 20 MG; Start 09/11/18 at 09:00 Potassium Chloride/Dextrose/ Sod Cl 1,000 ml @ 100 mls/hr Q10H IV Last administered on 09/13/18at 04:47; Admin Dose 100 MLS/HR; Start 09/12/18 at 16:00 Piperacillin Sod/ Tazobactam Sod 100 ml @ 200 mls/hr Q8 IVPB Last administered on 09/13/18at 05:32; Admin Dose 200 MLS/HR; Start 09/12/18 at 16:00 DAREN GAN Sep 13, 2018 13:43
--- NOTE | 2018-09-13 13:49 | OPR ---
Date/Time of Note Date/Time of Note DATE: 09/13/18 TIME: 13:46 Operative Report Free Text/Dictation Preoperative Diagnosis: Symptomatic cholelithiasis Acute cholecystitis with positive HIDA Transaminitis Postoperative Diagnosis: Symptomatic cholelithiasis Abnormal liver color Acute cholecystitis Transaminitis Operation(s) Performed: 1. 3 port laparoscopic cholecystectomy 2. Laparoscopic liver wedge resection biopsy 3. Local anesthetic injection, [id number] 4. ICG (indigocarmine green) florescence cholangiography Surgeon: Arley Martell MD Nanotechnician: Yarely Keys NP Anesthesia: general, local, & regional Anesthesiologist: Elva Shine MD Estimated Blood Loss: Less than 10 ml's Specimens: Gallbladder Liver Tubes/Drains: None Complications: None Pt Condition Post Procedure: stable Disposition: PACU Indications: 52-year-old female with gallstones and abdominal pain here for cholecystectomy. Risks include but are not limited to bleeding, infection, abscess, seroma, damage to intestines, damage to the liver, damage to biliary tree, hernia formation, chronic pain, biloma, need for reoperations or further surgeries, MA, stroke, PE, DVT, pneumonia, organ failures, or even . Procedure Description: Patient was brought and placed supine on the operating table SCDs were placed, preoperative antibiotics were administered, all pressure points were well- padded, and after induction of anesthesia patient was prepped and draped in usual sterile fashion and timeout was performed. Incision was made in the supraumbilical region, Veress was safely inserted, and after a negative SIP test, abdomen was insufflated to 15mmHg. Veress was removed and 5mm port was safely inserted. Laparoscopy was performed with a 5 mm 30 scope. No injuries were identified. The liver looks somewhat abnormal color. The gallbladder is distended and thickened with evidence of inflammation and infection. 12 mm port is placed in subxiphoid under direct visualization followed by another 5 mm port in the right upper quadrant. All port sites were injected with quarter percent Marcaine with epi and 1% lidocaine prior to any incisions. Patient was placed in reverse Trendelenburg and right side up on gallbladder was retracted superolaterally. The gallbladder was large and distended. Using electrocautery and blunt dissection I was able to identify the cystic artery and cystic duct. The duct tapered into the gallbladder. Full critical angle view was identified. ICG fluorescence cholangiography was performed identifying the common bile duct with some contrast into the cystic duct. This confirmed our anatomy further. There is bile in the small bowel. Both structures were clipped twice proximally and once distally and transected. The gallbladder was taken off the liver with electrocautery. Hemostasis was obtained. Gallbladder was placed in an Endo Catch bag and removed through the subxiphoid port site. There was complete hemostasis. Due to the abnormality of the liver and transaminitis, decision was made to perform liver wedge resection which was done with electrocautery and scissor with complete hemostasis right after. The specimen was sent to pathology for further evaluation. 12 mm made port site fascia was closed with Endo Close of an 0 Vicryl in a [id number] manner. Ports and CO2 were removed under direct visualization. Next complete hemostasis. Wounds were thoroughly irrigated skin was closed with 4-0 Monocryl in subcuticular fashion. Dermabond was applied. Patient was extubated and transferred to recovery room in stable condition and all counts were correct and the end of the operation 2. ARLEY MARTELL MD Sep 13, 2018 13:49
[2018-09-13] MEDS ORDERED: ACETAMINOPHEN 500 MG TAB PO PRN (14:00)
[2018-09-13] MEDS ORDERED: HYDROCODONE/APAP (5/325) TAB PO PRN (14:00)
[2018-09-13] MEDS ORDERED: HYDROmorphONE 1 MG/5 ML IV SYRINGE IV ONE (14:09)
--- NOTE | 2018-09-13 14:21 | PAC ---
Date/Time of Note Date/Time of Note DATE: 09/13/18 TIME: 14:21 Post-Anesthesia Notes Post-Anesthesia Note Last documented vital signs Vital Signs Date Temp Pulse Resp B/P (MAP) Pulse Ox O2 O2 Flow FiO2 Time Delivery Rate 09/13/18 98.3 13:53 09/13/18 98.2 72 19 97/54 (68) 96 07:26 09/13/18 Room Air 03:57 Activity: WNL Respiratory function: WNL Cardiovascular function: WNL Mental status: Baseline Pain reasonably controlled: Yes Hydration appropriate: Yes Nausea/Vomiting absent: No HUMERA ROSENBAUM MD Sep 13, 2018 14:21
[2018-09-13] MEDS ORDERED: DIPHENHYDRAMINE 50 MG INJ IV PRN (14:30)
[2018-09-13] MEDS ORDERED: MEPERIDINE 25 MG INJ IV PRN (14:30)
[2018-09-13] MEDS ORDERED: HYDROmorphONE 1 MG/5 ML IV SYRINGE IV PRN ×3 (14:30)
[2018-09-13] MEDS ORDERED: ONDANSETRON 4 MG INJ IV PRN (14:30)
[2018-09-13] MEDS ORDERED: KETOROLAC 30 MG INJ IV PRN (14:30)
[2018-09-13] MEDS ORDERED: morphine 4 MG/ML VIAL ONE (15:14)
--- NOTE | 2018-09-13 15:42 | PN ---
Date/Time of Note Date/Time of Note DATE: 09/13/18 TIME: 15:37 Assessment/Plan VTE Prophylaxis Risk score (from Ns)>0 risk: 6 SCD applied (from [facility] [place]): Yes Pharmacological prophylaxis: other Pharm contraindication: low risk/ambulating Lines/Catheters IV Catheter Type (from [facility]): Peripheral IV Assessment/Plan Assessment/Plan 1. Acute cholecystitis, cholelithiasis, s/p lap cholecystectomy, on zosyn 2. Transaminitis, negative hep B/C, unclear etiology, ?passed a small stone, follow up with GI Result Diagram: 09/13/1842609/13/18426 Results 24hrs Laboratory Tests Test 09/13/18 04:27 White Blood Count 6.5 # Red Blood Count 3.54 L Hemoglobin 11.3 L Hematocrit 34.8 L Mean Corpuscular Volume 98.3 Mean Corpuscular Hemoglobin 31.9 Mean Corpuscular Hemoglobin Concent 32.5 Red Cell Distribution Width 13.5 Platelet Count 328 Mean Platelet Volume 9.2 Immature Granulocytes % 0.300 Neutrophils % 57.2 Lymphocytes % 32.1 Monocytes % 7.9 Eosinophils % 2.2 Basophils % 0.3 Nucleated Red Blood Cells % 0.0 Immature Granulocytes # 0.020 Neutrophils # 3.7 Lymphocytes # 2.1 Monocytes # 0.5 Eosinophils # 0.1 Basophils # 0.0 Nucleated Red Blood Cells # 0.0 Sodium Level 142 Potassium Level 4.1 Chloride Level 111 H Carbon Dioxide Level 27 Anion Gap 4 L Blood Urea Nitrogen 14 Creatinine 0.57 Est Glomerular Filtrat Rate mL/min > 60 Glucose Level 96 Calcium Level 9.3 Total Bilirubin 0.7 Direct Bilirubin 0.00 Indirect Bilirubin 0.7 Aspartate Amino Transf (AST/SGOT) 136 H Alanine Aminotransferase (ALT/SGPT) 384 H Alkaline Phosphatase 164 H Total Protein 7.1 Albumin 3.7 Globulin 3.40 H Albumin/Globulin Ratio 1.08 Serum HCG, Qualitative NEGATIVE Subjective 24 Hr Interval Summary Free Text/Dictation back from surgery. no distress Exam/Review of Systems Vital Signs Vitals Vital Signs Date Temp Pulse Resp B/P (MAP) Pulse Ox O2 O2 Flow FiO2 Time Delivery Rate 09/13/18 97.0 72 21 148/60 100 Room Air 15:19 (89) Intake and Output 09/12/18 09/12/18 09/13/18 1515:00 23:00 07:00 IntakeIntake Total 1300 ml 1100 ml OutputOutput Total 680 ml BalanceBalance 620 ml 1100 ml Exam Constitutional: alert, oriented, well developed Psych: no complaints, nl mood/affect Head: normocephalic, atraumatic Eyes: nl conjunctiva, EOMI, nl lids ENMT: nl external ears & nose, nl lips & teeth, nl nasal mucosa & septum Neck: supple, non-tender Respiratory: clear to auscultation, normal air movement; No congested cough, No crackles/rales, No diminished breath sounds, No intercostal retraction, No labored breathing, No respirations, No tactile fremitus, No wheezing, No other Cardiovascular: regular rate and rhythm, nl pulses; No bruits, No diastolic murmur, No edema, No gallop, No irregular rhythm, No jugular venous distention (JVD), No murmurs/extra sounds, No rub, No systolic murmur, No S3, No S4, No other Gastrointestinal: tender Musculoskeletal: nl extremities to inspection Extremities: normal pulses; No calf tenderness, No cyanosis, No clubbing, No edema, No pitting pedal e kaylene, No palpable cord, No tenderness, No other Neurological: HEMODIALYSIS PATIENT CARE SPECIALIST II-XII intact, nl mental status, nl speech, nl strength Medications Medications Current Medications IV Flush (NS 3 ml) 3 ml PER PROTOCOL IV ; Start 09/11/18 at 07:30 Ondansetron HCl (Zofran Inj) 4 mg Q6H PRN IV NAUSEA AND/OR VOMITING; Start 09/11/18 at 07:30 Morphine Sulfate (morphine) 2 mg Q4H PRN IV SEVERE PAIN LEVEL 7-10 Last administered on 09/13/18at 15:17; Admin Dose 2 MG; Start 09/11/18 at 07:30 Famotidine (Pepcid Iv) 20 mg Q12 IV Last administered on 09/13/18at 09:33; Admin Dose 20 MG; Start 09/11/18 at 09:00 Potassium Chloride/Dextrose/ Sod Cl 1,000 ml @ 100 mls/hr Q10H IV Last administered on 09/13/18at 04:47; Admin Dose 100 MLS/HR; Start 09/12/18 at 16:00 Acetaminophen/ Hydrocodone Bitart ([place] (5/325)) 1 tab Q6H PRN PO pain 4-6; Start 09/13/18 at 14:00 Acetaminophen (Tylenol Tab) 500 mg Q6H PRN PO MILD PAIN(1-3)OR ELEVATED TEMP; Start 09/13/18 at 14:00 Hydromorphone HCl (Dilaudid) 0.2 mg PACU PRN IV MILD PAIN LEVEL 1-3; Start 09/13/18 at 14:30; Stop 09/13/18 at 20:00 Hydromorphone HCl (Dilaudid) 0.4 mg PACU PRN IV MODERATE PAIN LEVEL 4-6; Start 09/13/18 at 14:30; Stop 09/13/18 at 20:00 Hydromorphone HCl (Dilaudid) 0.6 mg PACU PRN IV SEVERE PAIN LEVEL 7-10; Start 09/13/18 at 14:30; Stop 09/13/18 at 20:00 Ketorolac Tromethamine (Toradol) 30 mg PACU ORDER PRN IV PAIN; Start 09/13/18 at 14:30; Stop 09/13/18 at 20:00 Ondansetron HCl (Zofran Inj) 4 mg PACU ORDER PRN IV NAUSEA AND/OR VOMITING; Start 09/13/18 at 14:30; Stop 09/13/18 at 20:00 Meperidine HCl (Demerol) 25 mg PACU ORDER PRN IV POST OPERATIVE SHIVERING; Start 09/13/18 at 14:30; Stop 09/13/18 at 20:00 Diphenhydramine HCl (Benadryl) 25 mg PACU ORDER PRN IV PRURITUS; Start 09/13/18 at 14:30; Stop 09/13/18 at 20:00 Piperacillin Sod/ Tazobactam Sod 100 ml @ 200 mls/hr Q8 IVPB ; Start 09/13/18 at 16:00 ZENOBIA ALVAREZ MD Sep 13, 2018 15:42
[2018-09-13] MEDS ORDERED: morphine LIQ (10 MG/5 ML) CUP PO PRN (23:30)
[2018-09-14 00:09] VITALS: BP 111/61; PULSE 80; RESP 18
[2018-09-14] MEDS: PIPER-TAZO 3.375 GM IV (PMX) 100 ML IVPB SCH ×2 (06:00→14:17)
[2018-09-14] MEDS: D5-NS + KCL 20 MEQ 1,000 ML IV SCH (08:20)
[2018-09-14 08:50] VITALS: BP 113/61; PULSE 72; RESP 18
[2018-09-14] MEDS ORDERED: FAMOTIDINE 20 MG TAB PO SCH (09:00)
--- NOTE | 2018-09-14 10:19 | PN ---
Date/Time of Note Date/Time of Note DATE: 09/14/18 TIME: 10:14 Assessment/Plan Lines/Catheters IV Catheter Type (from Nrsg): Peripheral IV Assessment/Plan Assessment/Plan 1. Symptomatic cholelithiasis, abnormal liver colic, acute cholecystitis, transaminitis, concern for choledocholithiasis: MRCP noted and GI will not perform ERCP; status post laparoscopic cholecystectomy 09/13/18 -IS -ambulate -ice pack to abdominal wall -advance diet as tolerated -may be discharged per medical team with fu in office in 1-2 weeks 2. Abdominal pain: very minimal -As above -Pain management 3. Hyperbilirubinemia: Concern for choledocholithiasis: Improved -As above 4. Transaminitis: Likely 2/2 #1; hep panel negative -Status post liver biopsy> follow pathology -As above 5. Overweight BMI: 27 -diet and exercise optimization -encourage weight loss Thank you. Patient seen and examined in collaboration with Dr. Fernando Bustamante. Subjective 24 Hr Interval Summary Status post laparoscopic cholecystectomy. No fevers, chills, sob, congested cough, cp, palpitations, lopez, dizziness, n/v/d/dysuria. Exam/Review of Systems Vital Signs Vitals Vital Signs Date Temp Pulse Resp B/P (MAP) Pulse Ox O2 O2 Flow FiO2 Time Delivery Rate 09/14/18 98.1 72 18 113/61 97 Room Air 08:50 (78) Intake and Output 09/13/18 09/13/18 09/14/18 1414:59 22:59 06:59 IntakeIntake Total 1500 ml 500 ml 1250 ml OutputOutput Total 10 ml BalanceBalance 1490 ml 500 ml 1250 ml Exam Free Text/Dictation Constitutional: alert, oriented, well developed Psych: nl mood/affect; No anxiety Head: normocephalic, atraumatic Eyes: nl conjunctiva, EOMI, nl lids ENMT: nl external ears & nose, nl lips & teeth, nl nasal mucosa & septum, mucosa pink and moist Neck: supple, non-tender; No jvd, No nuchal rigidity Respiratory: normal air movement; No congested cough, No labored breathing Cardiovascular: regular rate and rhythm, nl pulses; No edema Gastrointestinal: soft, distended (Minimal), surgical scars, tender (fadi- incisional, incision sites dry without drainage/discoloration/bruising) Genitourinary - Female: nl external genitalia Musculoskeletal: nl extremities to inspection, nl gait and stance Extremities: normal pulses Neurological: nl mental status, nl speech, nl strength Skin: No rash or lesions Results Result Diagram: 09/14/18 0454 09/14/18 0454 CHASE SINGLETON NP Sep 14, 2018 10:19
[2018-09-14 14:37] VITALS: BP 110/60; RESP 18
--- NOTE | 2018-09-14 15:18 | PN ---
Date/Time of Note Date/Time of Note DATE: 09/14/18 TIME: 15:12 Assessment/Plan VTE Prophylaxis Risk score (from Ns)>0 risk: 4 SCD applied (from Ns): Yes Pharmacological prophylaxis: other (scds) Lines/Catheters IV Catheter Type (from [facility]): Peripheral IV Assessment/Plan Hospital Course Summary Assessment and Plan: Assessment: Symptomatic cholelithiasis vs other -with presumed tumefactive sludge on imaging Rule out choledocholithiasis- MRCP No definite choledocholithiasis visualized- CBD 0.7cm Elevated LFTs with indirect hyperbilirubinemia- improving -Hepatitis panel negative for hepatitis B/C Plan: Pt appears stable for discharge management APRIL- positive 1:40 rec pt to f/u with PCP for further revaluation ASMA, AMA- neg Monitor labs, LFTs improving Patient seen in collaboration with Dr. Bond/Kuldpi Subjective: Course reviewed with nursing staff Patient interviewed and examined All labs, imaging and other results reviewed Patient feels well, c/o some surgical pain No c/o n/v, hal diet well. Pt appears stable for out-pt management PHYSICAL EXAMINATION: GENERAL: Well developed, well nourished, alert & oriented x 3, in no acute distress SKIN: No lesions CARDIOVASCULAR: Heart: Regular rate and rhythm RESPIRATORY: Lungs clear to auscultation GASTROINTESTINAL AND LIVER: Abdomen: Soft, non tenderness, non-distended, no hernias, no masses, no organomegaly, no ascites, no guarding, no rebound tenderness, normoactive bowel sounds. Rectal: Deferred. GENITOURINARY: Female genitalia within normal limits. EXTREMITIES: No cyanosis, clubbing or edema Result Diagram: 09/14/18 0454 09/14/18 0454 Results 24hrs Laboratory Tests Test 09/14/18 04:54 White Blood Count 6.6 Red Blood Count 3.34 L Hemoglobin 10.7 L Hematocrit 32.4 L Mean Corpuscular Volume 97.0 Mean Corpuscular Hemoglobin 32.0 Mean Corpuscular Hemoglobin Concent 33.0 Red Cell Distribution Width 13.6 Platelet Count 329 Mean Platelet Volume 9.1 Immature Granulocytes % 0.200 Neutrophils % 56.8 Lymphocytes % 33.5 Monocytes % 8.7 Eosinophils % 0.6 Basophils % 0.2 Nucleated Red Blood Cells % 0.0 Immature Granulocytes # 0.010 Neutrophils # 3.8 Lymphocytes # 2.2 Monocytes # 0.6 Eosinophils # 0.0 Basophils # 0.0 Nucleated Red Blood Cells # 0.0 Sodium Level 140 Potassium Level 3.9 Chloride Level 110 Carbon Dioxide Level 27 Anion Gap 3 L Blood Urea Nitrogen 7 Creatinine 0.56 Est Glomerular Filtrat Rate mL/min > 60 Glucose Level 109 Calcium Level 9.0 Total Bilirubin 0.9 Direct Bilirubin 0.00 Indirect Bilirubin 0.9 Aspartate Amino Transf (AST/SGOT) 191 H Alanine Aminotransferase (ALT/SGPT) 367 H Alkaline Phosphatase 213 H Total Protein 6.3 Albumin 3.3 Globulin 3.00 Albumin/Globulin Ratio 1.10 Exam/Review of Systems Vital Signs Vitals Vital Signs Date Temp Pulse Resp B/P (MAP) Pulse Ox O2 O2 Flow FiO2 Time Delivery Rate 09/14/18 97.6 18 110/60 96 Room Air 14:37 (77) 09/14/18 72 08:50 Intake and Output 09/13/18 09/13/18 09/14/18 1515:00 23:00 07:00 IntakeIntake Total 1500 ml 500 ml 1250 ml OutputOutput Total 10 ml BalanceBalance 1490 ml 500 ml 1250 ml Medications Medications Current Medications IV Flush (NS 3 ml) 3 ml PER PROTOCOL IV ; Start 09/11/18 at 07:30 Ondansetron HCl (Zofran Inj) 4 mg Q6H PRN IV NAUSEA AND/OR VOMITING; Start 09/11/18 at 07:30 Acetaminophen/ Hydrocodone Bitart ([place] (5/325)) 1 tab Q6H PRN PO pain 4-6 Last administered on 09/14/18at 00:01; Admin Dose 1 TAB; Start 09/13/18 at 14:00 Acetaminophen (Tylenol Tab) 500 mg Q6H PRN PO MILD PAIN(1-3)OR ELEVATED TEMP; Start 09/13/18 at 14:00 Piperacillin Sod/ Tazobactam Sod 100 ml @ 200 mls/hr Q8 IVPB Last administered on 09/14/18at 14:17; Admin Dose 200 MLS/HR; Start 09/13/18 at 16:00 Morphine Sulfate (morphine) 6 mg Q4H PRN PO SEVERE PAIN LEVEL 7-10 Last administered on 09/14/18at 06:00; Admin Dose 6 MG; Start 09/13/18 at 23:30 Famotidine (Pepcid) 20 mg Q12 PO Last administered on 09/14/18at 08:20; Admin Dose 20 MG; Start 09/14/18 at 09:00 DAREN GAN Sep 14, 2018 15:18
[2018-09-14] MEDS ORDERED: AMOX1TAB9 PO (15:49)
--- NOTE | 2018-09-14 15:58 | DS ---
Date/Time of Note Date/Time of Note DATE: 09/14/18 TIME: 15:52 Discharge Summary Admission/Discharge Info Admit Date/Time Sep 11, 2018 at 05:23 Discharge Date/Time Discharge Diagnosis 1. Acute cholecystitis, cholelithiasis, s/p lap cholecystectomy, stable, follow up with Dr. Bustamante 2. Transaminitis, negative hep B/C, considered she passed a small stone, follow up with Dr. Bond Patient Condition: Stable Hospital Course Yarely Sandoval is a 52-year-old woman without significant past medical history, who presents to the ER with complaints of abdominal pain times 3 days. Abdominal pain is mid epigastric and in the right upper quadrant area with radiation to the back. Pain is described as strong and stabbing. Associated symptoms include one-time vomiting, nonbloody emesis. She denies changes in pain characteristic with food, fevers, chills, congested cough, chest pain, palpitations, dysuria, diarrhea, change in bowel or bladder habits, seizures, rash, skin or scleral changes.Ultrasound of the gallbladder shows gallstones with presumed tumefactive sludge and a positive sonographic Dillon's sign with out wall thickening or pericholecystic fluid. Laboratory findings significant for elevated bilirubin and transaminitis. US, MRCP revealed gallstones but no CBD stone, HIDA scan is positive. Patient had lap cholecystectomy on 09/13/2018 without complications. Patient tolerates diet well. She will follow up with surgery in one week For transaminitis, there is no CBD stenosis or stone on MRCP. It is improving after admission. It is likely that she passed a small stone. She follow up with Dr. Bond for LFTs. Home Meds Active Scripts Amoxicillin/Potassium Clav (Amox-Clav 500-125 mg Tablet) 500-125 mg Tab, 1 TAB PO BID for 5 Days, TAB Prov:ZENOBIA ALVAREZ MD 09/14/18 Follow-up Plan PCP, surgery and GI in one week Primary Care Provider Care Physician No Primary Pending Labs Laboratory Tests Test 09/14/18 04:54 White Blood Count 6.6 10^3/ul (4.8-10.8) Red Blood Count 3.34 10^6/ul (4.20-5.40) Hemoglobin 10.7 g/dl (12.0-16.0) Hematocrit 32.4 % (37.0-47.0) Mean Corpuscular Volume 97.0 fl (82.0-101.0) Mean Corpuscular Hemoglobin 32.0 pg (29.0-33.0) Mean Corpuscular Hemoglobin Concent 33.0 g/dl (32.0-37.0) Red Cell Distribution Width 13.6 % (11.5-14.5) Platelet Count 329 10^3/UL (140-415) Mean Platelet Volume 9.1 fl (7.4-10.4) Immature Granulocytes % 0.200 % (0.001-0.429) Neutrophils % 56.8 % (39.0-77.0) Lymphocytes % 33.5 % (15.0-51.0) Monocytes % 8.7 % (0.0-11.0) Eosinophils % 0.6 % (0.0-7.0) Basophils % 0.2 % (0.0-2.0) Nucleated Red Blood Cells % 0.0 /100WBC (0.0-0.0) Immature Granulocytes # 0.010 10^3/ul (0.0-0.031) Neutrophils # 3.8 10^3/ul (1.6-7.5) Lymphocytes # 2.2 10^3/ul (0.8-2.9) Monocytes # 0.6 10^3/ul (0.3-0.9) Eosinophils # 0.0 10^3/ul (0.0-0.5) Basophils # 0.0 10^3/ul (0.0-0.1) Nucleated Red Blood Cells # 0.0 10^3/ul (0.0-0.0) Sodium Level 140 mmol/L (135-144) Potassium Level 3.9 mmol/L (3.5-5.1) Chloride Level 110 mmol/L (97-110) Carbon Dioxide Level 27 mmol/L (21-31) Anion Gap 3 (5-13) Blood Urea Nitrogen 7 mg/dl (7-20) Creatinine 0.56 mg/dl (0.44-1.00) Est Glomerular Filtrat Rate mL/min > 60 mL/min (>60) Glucose Level 109 mg/dl (70-220) Calcium Level 9.0 mg/dl (8.4-10.2) Total Bilirubin 0.9 mg/dl (0.2-1.3) Direct Bilirubin 0.00 mg/dl (0.00-0.20) Indirect Bilirubin 0.9 mg/dl (0-1.1) Aspartate Amino Transf (AST/SGOT) 191 IU/L (15-46) Alanine Aminotransferase (ALT/SGPT) 367 IU/L (13-69) Alkaline Phosphatase 213 IU/L (42-121) Total Protein 6.3 g/dl (6.1-8.1) Albumin 3.3 g/dl (3.3-4.9) Globulin 3.00 g/dl (1.3-3.2) Albumin/Globulin Ratio 1.10 ZENOBIA ALVAREZ MD Sep 14, 2018 15:58
== END 2018-09-14 16:30 | disposition home or self-care (01) | DRG 419 ==
LOC: E/R 23:28 → MS1 09-11 05:23
PROVIDERS: ADMIT Internal Medicine; ATTEND Internal Medicine
PROC: 0FB04ZX Excision of Liver, Percutaneous Endoscopic Approach, Diagnostic (ICD-10-PCS; 2018-09-13)
PROC: 0FT44ZZ Resection of Gallbladder, Percutaneous Endoscopic Approach (ICD-10-PCS; principal; 2018-09-13 12:00)
DX: K80.00 Calculus of gallbladder with acute cholecystitis without obstruction (principal); E80.6 Other disorders of bilirubin metabolism; K76.9 Liver disease, unspecified
CPT/HCPCS: 36415; 74181; 76705; 78226; 80053; 81001; 83690; 83735; 84100; 84703; 85025; 86038; 86255; 86706; 86803; 87340; 88304; 88307; 88313; 90686; 96374; 96375; A9537; J0690; J1170; J1885; J2250; J2270; J2405; J2543; J2710; J2765; J2795; J3480; J7030; J7042